=== PATIENT | male | born 1950 | race Caucasian/White ===

== ENCOUNTER 2023-11-05 06:47 | Day surgery (SDC) | payer MEDICARE, SELFPAY ==
[2023-11-05] VITALS (13 sets, daily range): BP systolic 106–147; BP diastolic 53–107; BMI 23.6
[2023-11-05 07:10] LABS: Hematocrit 38.7 % (39.0-52.0); Hemoglobin 13.2 g/dL (13.0-18.0); Mean Corp Hgb Conc. 34.1 g/dL (33.0-37.0); Mean Corpuscular Hgb 30.4 pg (27.0-31.0); Mean Corpuscular Volume 89.2 fL (80.0-94.0); Mean Platelet Volume 9.4 fL (7.4-10.4); Platelet Count 177 10^3/uL (130-400); Red Blood Cell Count 4.34 10^6/uL (4.70-6.10); White Blood Cell Count 7.1 10^3/uL (4.8-10.8)
[2023-11-05 07:24] LABS: INR 0.98; PT 13.2 Sec (11.4-14.6)
[2023-11-05 07:25] LABS: APTT 46.7 Sec (23.4-35.0)
[2023-11-05 07:49] LABS: Blood Urea Nitrogen 28 mg/dl (9-20); Calcium 9.6 mg/dl (8.4-10.2); Carbon Dioxide 25 mmol/L (22-30); Chloride 104 mmol/L (98-107); Estimated Creatinine Clearance 45 ml/min; Glucose 100 mg/dl (70-99); Potassium 4.2 mmol/L (3.5-5.1); Sodium 139 mmol/L (135-145); eGFR 49.16
--- NOTE | 2023-11-05 08:30 | W.SUR.PREOP ---
Pre-Operative Surgical Note
-
I have examined this patient prior to the performance of the scheduled procedure.
The patient's condition is unchanged from the time of the current History and
Physical and the patient is able to undergo the scheduled procedure.
--- NOTE | 2023-11-05 10:04 | W.IMMPOSTOP ---
Surgical Immed Post Op Note
-
Primary Surgeon: Tyrone Phoenix III, MD
Assisting Surgeon: Antoni Kline MD
Pre-op Diagnosis: Left renal artery stenosis, CKD
Post-op Diagnosis: Left renal artery stenosis s/p balloon expandable stent
Procedure Performed: Aorto-renal gram, left renal artery balloon expandable stenting
Anesthesia Type: Light Sedation
Specimen / Cultures: None
Estimated Blood Loss: 10cc
Complications: None
Operative Findings: Access obtained via right fem artery with placement of 6 Fr sheath. Aorto-renal gram demonstrated widely patent right renal artery. Large ostial stenosis noted of the left renal artery. A 6x22 balloon expandable stent was
successfully deployed across the ostial stenosis successfully. Post-deployment arteriogram demonstrated significant improvement in flow.
[2023-11-05] MEDS: PLAVIX 300 MG PO (10:44)
--- NOTE | 2023-11-05 10:57 | OR.RPT ---
Operative Report
Operative Report
Date of Operation: 11/05/2023
Pre Op Diagnosis:
1.) Chronic kidney disease
2.) Asymmetric kidney length
3.) High-grade stenosis origin of left renal artery
Post Op Diagnosis:
1.) Chronic kidney disease
2.) Asymmetric kidney length
3.) High-grade stenosis origin of left renal artery
Procedure:
1.) Diagnostic aortogram
2.) Selected left renal arteriogram
3.) Balloon angioplasty and stenting of left renal artery stenosis (6 mm x 22 mm iCast)
Surgeon: Tyrone Phoenix III, MD
Information Clerk: Antoni Kline MD PGY-1
Anesthesia: Sedation/local
Complications: None
Estimated Blood Loss: Minimal
History and Indications for Procedure: 73-year-old male with chronic kidney disease and high-grade stenosis of his left renal artery with asymmetric kidney length on duplex. After discussion with his staff toxicologist we made the recommendation for
arteriogram and endovascular intervention.
Procedure in Detail: Donovan Berger was correctly identified and placed supine on the operating table. After adequate induction of anesthesia his bilateral groins were prepped and draped in the usual sterile fashion. A timeout procedure was
performed with the nursing and anesthesia staff confirming the patient's identity as well as the nature and laterality of the procedure.
Under ultrasound guidance the right common femoral artery was visualized. Using fluoroscopic guidance the superior and inferior aspects of the right femoral head were identified. Local anesthesia was infiltrated into the proposed puncture site.
Under direct ultrasound visualization the right common femoral artery was accessed in a retrograde fashion with a micropuncture needle. A 5 Afghan sheath was then placed over a Bentson wire. The Bentson wire was navigated into the abdominal aorta
followed by a pigtail catheter. A diagnostic aortogram was performed which demonstrated the following:
Aorta patent with no stenosis identified. Heavy diffuse peripheral wall calcification identified. Right renal artery widely patent with no stenosis identified and brisk flow. Left renal artery with sluggish flow and poorly opacified consistent
with a high-grade proximal stenosis seen on duplex imaging.
Systemic heparin was administered. Using a MHK1 catheter and a Glidewire under roadmap guidance I selected the left renal artery. The tip of the catheter was then pulled down and engaged at the origin of the left renal artery. I selected
arteriogram of the left renal artery was performed. There was a high-grade stenosis identified at the origin of the left renal artery. This was calcified. The remainder of the renal artery was patent with no significant stenosis identified.
Using a Quickcross catheter I exchanged out for a Aldana wire. A 6 Afghan 45 cm was then brought into position and the radiopaque tip advanced gently across the origin of the left renal artery. An arteriogram confirmed proper positioning within the
proximal left renal artery. Under roadmap guidance a 6 mm x 22 mm iCast stent was positioned in the desired location across the origin of the left renal artery. The sheath was retracted and the stent was deployed by inflating the balloon to
nominal pressure. The balloon was deflated and the sheath readvanced into the stent, swallowing the balloon.
Completion arteriogram demonstrated an excellent technical result. The left renal artery stent was widely patent. No residual stenosis was identified. The left renal artery flow was brisk and there was good enhancement of the kidney.
Satisfied with this technical result we then concluded the procedure. Protamine was administered. The sheath was pulled back into the right external iliac artery. The wire was removed.
The sheath was pulled and direct manual pressure was held over the puncture site. Hemostasis was achieved. A sterile dressing was applied.
The patient tolerated the procedure well was taken to the recovery room in good condition.
Attestation: I was present and responsible for the entire procedure.
Signed:
Tyrone Phoenix III, MD
[facility]
[phone] (dilh)
[2023-11-05] MEDS: NSS 1000 IV (14:14)
[2023-11-05] MEDS: LIDOCAINE URO-JET 2% 1 SYRINGE TOPICAL (14:14)
--- NOTE | 2023-11-05 14:15 | PTCARENOTE ---
Pt unable to void S/p ADRIENNE with STENT. Bladder scan showed > 400 ml. Order obtained to straight cath and pre treat with lidocaine gel. Pt tolerated procedure well. 450ml of yellow urine was drained.Comfortable
--- NOTE | 2023-11-05 15:45 | PTCARENOTE ---
Pt still unable to void. Standing at the side of the bed with urinal in place.
== END 2023-11-05 16:30 | disposition home or self-care (01) ==
LOC: CATH 06:47
PROVIDERS: ATTENDING PHYSICIAN Surgery Vascular Surgery; FAMILY PHYSICIAN Family Medicine; OTHER PHYSICIAN Internal Medicine Cardiovascular Disease
DX: I70.1 Atherosclerosis of renal artery (principal); Z87.891 Personal history of nicotine dependence; I10 Essential (primary) hypertension; Z86.73 Personal history of transient ischemic attack (TIA), and cerebral infarction without residual deficits; Z79.82 Long term (current) use of aspirin
CPT/HCPCS: 36251; 37236; 76937; 80048; 85027; 85610; 85730; 86850; 86900; 86901; C1874; Q9967

== ENCOUNTER → 2023-12-08 14:43 | Outpatient (REF) | payer MEDICARE, SELFPAY | LOC: RAD 14:43 | PROVIDERS: ATTENDING PHYSICIAN Surgery Vascular Surgery; FAMILY PHYSICIAN Family Medicine | DX: I70.1 Atherosclerosis of renal artery (principal) | CPT/HCPCS: 93975 ==

== ENCOUNTER → 2024-01-11 08:59 | Outpatient (REF) | payer MEDICARE, SELFPAY ==
[2024-01-11 14:17] LABS: Urine Protein 9 mg/dl (0-12)
[2024-01-11 14:54] LABS: Albumin 4.6 g/dl (3.5-5.0); Blood Urea Nitrogen 31 mg/dl (9-20); Calcium 9.8 mg/dl (8.4-10.2); Carbon Dioxide 24 mmol/L (22-30); Chloride 107 mmol/L (98-107); Glucose 99 mg/dl (70-99); Phosphorus 3.3 mg/dl (2.5-4.5); Potassium 4.6 mmol/L (3.5-5.1); Sodium 140 mmol/L (135-145); eGFR 49.16
[2024-01-11 14:55] LABS: PSA, Total - Diagnostic 1.26 ng/ml (0.0-4.0)
[2024-01-11 19:07] LABS: Urine Albumin Negative (Neg - Trace); Urine Bilirubin Negative (Negative); Urine Character Clear (Clear); Urine Color Yellow; Urine Glucose Negative (Negative); Urine Ketone Negative (Negative); Urine Leukocyte Negative (Negative); Urine Nitrite Negative (Negative); Urine Occult Blood Negative (Negative); Urine Urobilinogen Negative (Neg - 1+)
[2024-01-12 11:05] LABS: Intact PTH 40.6 pg/ml (13.6-85.8)
== END ==
LOC: HWLAB 08:59
PROVIDERS: ATTENDING PHYSICIAN Internal Medicine; FAMILY PHYSICIAN Family Medicine; REFERRING PHYSICIAN Urology
DX: C67.9 Malignant neoplasm of bladder, unspecified (principal); N40.1 Benign prostatic hyperplasia with lower urinary tract symptoms; N13.8 Other obstructive and reflux uropathy; R31.9 Hematuria, unspecified; N18.31 Chronic kidney disease, stage 3a
CPT/HCPCS: 36415; 80069; 81003; 82570; 83970; 84153; 84156

== ENCOUNTER → 2024-01-19 09:24 | Outpatient (REF) | payer MEDICARE, SELFPAY | LOC: HWRAD 09:24 | PROVIDERS: ATTENDING PHYSICIAN Specialist; FAMILY PHYSICIAN Family Medicine | DX: B19.10 Unspecified viral hepatitis B without hepatic coma (principal) | CPT/HCPCS: 76700 ==

== ENCOUNTER → 2024-03-11 07:29 | Outpatient (REF) | payer MEDICARE, SELFPAY | LOC: MRI 3T 07:29 | PROVIDERS: ATTENDING PHYSICIAN Orthopaedic Surgery; FAMILY PHYSICIAN Family Medicine | DX: M25.512 Pain in left shoulder (principal) | CPT/HCPCS: 73221 ==

== ENCOUNTER → 2024-03-28 08:14 | Outpatient (REF) | payer MEDICARE, SELFPAY ==
[2024-03-28 10:22] LABS: % Basophils 1.1 % (0-2); % Eosinophils 6.1 % (0-6); % Immature Granulocytes 0.2 % (0-0.5); % Lymphocytes 27.7 % (20.5-51.1); % Monocytes 8.6 % (1.7-9.3); % Neutrophils 56.3 % (42.2-75.2); Absolute Basophils 0.1 10^3/uL (0-0.2); Absolute Eosinophils 0.3 10^3/uL (0-0.7); Absolute Lymphocytes 1.6 10^3/uL (1.2-3.4); Absolute Monocytes 0.5 10^3/uL (0.1-0.6); Absolute Neutrophils 3.2 10^3/uL (1.4-6.5); Hematocrit 39.3 % (39.0-52.0); Hemoglobin 12.8 g/dL (13.0-18.0); Mean Corp Hgb Conc. 32.6 g/dL (33.0-37.0); Mean Corpuscular Hgb 30.2 pg (27.0-31.0); Mean Corpuscular Volume 92.7 fL (80.0-94.0); Mean Platelet Volume 9.4 fL (7.4-10.4); Nucleated Red Blood Cells % 0 % (-); Platelet Count 186 10^3/uL (130-400); Red Blood Cell Count 4.24 10^6/uL (4.70-6.10); Red Cell Dist. Width 13.8 % (11.5-14.5); White Blood Cell Count 5.6 10^3/uL (4.8-10.8)
[2024-03-28 10:55] LABS: Blood Urea Nitrogen 34 mg/dl (9-20); Calcium 9.6 mg/dl (8.4-10.2); Carbon Dioxide 24 mmol/L (22-30); Chloride 106 mmol/L (98-107); Glucose 90 mg/dl (70-99); Potassium 4.7 mmol/L (3.5-5.1); Sodium 140 mmol/L (135-145); eGFR 48.85
== END ==
LOC: HWLAB 08:14
PROVIDERS: ATTENDING PHYSICIAN Orthopaedic Surgery; FAMILY PHYSICIAN Family Medicine
DX: Z01.818 Encounter for other preprocedural examination (principal)
CPT/HCPCS: 36415; 80048; 85025

== ENCOUNTER → 2024-05-19 09:43 | Outpatient (REF) | payer MEDICARE, SELFPAY | LOC: RAD 09:43 | PROVIDERS: ATTENDING PHYSICIAN Physician Assistant; FAMILY PHYSICIAN Family Medicine | DX: I77.819 Aortic ectasia, unspecified site (principal); I70.1 Atherosclerosis of renal artery | CPT/HCPCS: 76770; 93975 ==

== ENCOUNTER → 2024-11-22 11:32 | Outpatient (REF) | payer MEDICARE, SELFPAY ==
[2024-11-22 16:43] LABS: Hematocrit 38.8 % (39.0-52.0); Hemoglobin 13.1 g/dL (13.0-18.0); Mean Corp Hgb Conc. 33.8 g/dL (33.0-37.0); Mean Corpuscular Hgb 30.7 pg (27.0-31.0); Mean Corpuscular Volume 90.9 fL (80.0-94.0); Mean Platelet Volume 9.5 fL (7.4-10.4); Platelet Count 185 10^3/uL (130-400); Red Blood Cell Count 4.27 10^6/uL (4.70-6.10); Red Cell Dist. Width 13.8 % (11.5-14.5); White Blood Cell Count 8.3 10^3/uL (4.8-10.8)
[2024-11-22 16:51] LABS: ALT (SGPT) 35 U/L (0-50); AST (SGOT) 38 U/L (17-59); Albumin 4.5 g/dl (3.5-5.0); Alkaline Phosphatase 83 U/L (38-126); Blood Urea Nitrogen 28 mg/dl (9-20); Calcium 9.5 mg/dl (8.4-10.2); Carbon Dioxide 24 mmol/L (22-30); Chloride 105 mmol/L (98-107); Direct Bilirubin 0.3 mg/dl (0.0-0.4); Glucose 92 mg/dl (70-99); Phosphorus 2.9 mg/dl (2.5-4.5); Potassium 4.6 mmol/L (3.5-5.1); Sodium 137 mmol/L (135-145); Total Bilirubin 0.9 mg/dl (0.2-1.3); Total Protein 7.4 g/dl (6.3-8.2); eGFR 48.85
[2024-11-22 17:03] LABS: Urine Protein 6 mg/dl (0-12)
[2024-11-22 17:21] LABS: PSA, Total - Diagnostic 0.94 ng/ml (0.0-4.0)
[2024-11-22 17:22] LABS: Hepatitis B Surface Antigen Negative (Negative)
[2024-11-22 17:39] LABS: Hepatitis B Surface Antibody Positive
== END ==
LOC: HWLAB 11:32
PROVIDERS: ATTENDING PHYSICIAN Specialist; FAMILY PHYSICIAN Internal Medicine; OTHER PHYSICIAN Internal Medicine; REFERRING PHYSICIAN Urology
DX: Z86.19 Personal history of other infectious and parasitic diseases (principal); C67.9 Malignant neoplasm of bladder, unspecified; N32.0 Bladder-neck obstruction; N18.31 Chronic kidney disease, stage 3a; I77.819 Aortic ectasia, unspecified site
CPT/HCPCS: 36415; 80053; 82105; 82248; 82570; 84100; 84153; 84156; 85027; 86706; 87340

== ENCOUNTER → 2025-01-09 08:03 | Outpatient (REF) | payer MEDICARE, SELFPAY ==
[2025-01-09 10:06] LABS: HDL Cholesterol 67 mg/dl; LDL Cholesterol, Calculated 69 mg/dl; Total Cholesterol 162 mg/dl (50-199); Triglyceride 131 mg/dl (10-149); Very Low Density Lipoprotein 26 mg/dl (0-30)
== END ==
LOC: HWLAB 08:03
PROVIDERS: ATTENDING PHYSICIAN Internal Medicine
DX: E78.5 Hyperlipidemia, unspecified (principal)
CPT/HCPCS: 36415; 80061

== ENCOUNTER → 2025-01-24 13:49 | Outpatient (REF) | payer MEDICARE, SELFPAY | LOC: HWRAD 13:49 | PROVIDERS: ATTENDING PHYSICIAN Specialist; FAMILY PHYSICIAN Internal Medicine | DX: Z86.19 Personal history of other infectious and parasitic diseases (principal) | CPT/HCPCS: 76700 ==

== ENCOUNTER → 2025-06-04 09:42 | Outpatient (REF) | payer MEDICARE, SELFPAY | LOC: DHVS 09:42 | PROVIDERS: ATTENDING PHYSICIAN Surgery Vascular Surgery; FAMILY PHYSICIAN Internal Medicine | DX: I71.43 Infrarenal abdominal aortic aneurysm, without rupture (principal); I70.1 Atherosclerosis of renal artery | CPT/HCPCS: 76770; 93975 ==

== ENCOUNTER → 2025-08-13 09:19 | Outpatient (REF) | payer MEDICARE, SELFPAY ==
[2025-08-13 11:23] LABS: Hematocrit 39.4 % (39.0-52.0); Hemoglobin 12.9 g/dL (13.0-18.0); Mean Corp Hgb Conc. 32.7 g/dL (33.0-37.0); Mean Corpuscular Volume 91.4 fL (80.0-94.0); Nucleated Red Blood Cells % 0 % (-); Platelet Count 181 10^3/uL (130-400); Red Cell Dist. Width 13.6 % (11.5-14.5)
[2025-08-13 11:35] LABS: ALT (SGPT) 23 U/L (0-50); AST (SGOT) 26 U/L (17-59); Albumin 4.4 g/dl (3.5-5.0); Alkaline Phosphatase 64 U/L (38-126); Blood Urea Nitrogen 22 mg/dl (9-20); Calcium 9.4 mg/dl (8.4-10.2); Carbon Dioxide 26 mmol/L (22-30); Chloride 106 mmol/L (98-107); Glucose 101 mg/dl (70-99); HDL Cholesterol 71 mg/dl; LDL Cholesterol, Calculated 68 mg/dl; Potassium 4.9 mmol/L (3.5-5.1); Sodium 139 mmol/L (135-145); Total Protein 7.2 g/dl (6.3-8.2); Very Low Density Lipoprotein 22 mg/dl (0-30); eGFR 48.55
[2025-08-13 11:47] LABS: Vitamin D, 25-OH*** 29.6 ng/mL (30-80)
[2025-08-13 12:00] LABS: PSA, Total - Screen 0.68 ng/ml (0.0-4.0)
[2025-08-13 12:11] LABS: Glycohemoglobin (HgbA1c) 5.8 % (4.0-5.9)
== END ==
LOC: HWLAB 09:19
PROVIDERS: ATTENDING PHYSICIAN Urology; FAMILY PHYSICIAN Internal Medicine; REFERRING PHYSICIAN Internal Medicine Cardiovascular Disease
DX: C67.9 Malignant neoplasm of bladder, unspecified (principal); Z71.2 Person consulting for explanation of examination or test findings; R79.9 Abnormal finding of blood chemistry, unspecified; R79.89 Other specified abnormal findings of blood chemistry; Z13.220 Encounter for screening for lipoid disorders; E78.5 Hyperlipidemia, unspecified; E34.9 Endocrine disorder, unspecified; Z13.29 Encounter for screening for other suspected endocrine disorder; R73.09 Other abnormal glucose; I10 Essential (primary) hypertension; E55.9 Vitamin D deficiency, unspecified; Z12.5 Encounter for screening for malignant neoplasm of prostate
CPT/HCPCS: 36415; 80053; 80061; 82306; 83036; 84443; 85025; G0103